=== PATIENT | female | born 1985 | race Caucasian/White ===

== ENCOUNTER 2018-01-26 17:04 | Emergency (ER) | payer MEDICAID ==
--- NOTE | 2018-01-26 17:18 | ED Physician Documentation ---
PD HPI SKIN - Stated complaint Stated Complaint: THROAT TIGHTNESS BEE STING - Chief complaint Chief Complaint: Allergic Rx - History obtained from History obtained from: Patient PD PAST MEDICAL HISTORY - Allergies Allergies/Adverse Reactions: Allergies Allergy/AdvReac Type Severity Reaction Status Date / Time bee venom protein (honey bee) Allergy Anaphylaxis Verified 01/26/18 17:11 iodine Allergy Anaphylaxis Verified 01/26/18 17:11 Results - Vitals Vitals: Vital Signs - 24 hr 01/26/18 17:08 Temperature 36.7 C Heart Rate 83 Respiratory 20 Rate Blood Pressure 121/80 O2 Saturation 100 Oxygen O2 Source Room air
[2018-01-26] MEDS ORDERED: DEXAMETHASONE 10 MG/ML VIAL PO STA (17:19)
--- NOTE | 2018-01-26 18:12 | ED Physician Documentation ---
History of Present Illness - Stated complaint Stated Complaint: THROAT TIGHTNESS BEE STING - Chief complaint Chief Complaint: Allergic Rx - History obtained from History obtained from: Patient - History of Present Illness Timing: Prior to arrival, Today - Additonal information Additional information: 32 year old female was stung by a wasp today in the neck on the left side. She is immediately swelling of the area and she began to feel somewhat short of breath. She is taken for 25 mg Benadryl pills and feels somewhat better now. She has had anaphylaxis once when she was 14 years old from a bee sting. She does not now feel short of breath or have throat constriction. Review of Systems Constitutional: denies: Fever Eyes: denies: Decreased vision Ears: denies: Ear pain Nose: denies: Congestion Throat: denies: Sore throat Cardiac: denies: Chest pain / pressure, Palpitations Respiratory: denies: Dyspnea, Cough GI: denies: Abdominal Pain, Nausea, Vomiting : denies: Dysuria, Frequency PD PAST MEDICAL HISTORY - Allergies Allergies/Adverse Reactions: Allergies Allergy/AdvReac Type Severity Reaction Status Date / Time bee venom protein (honey bee) Allergy Anaphylaxis Verified 01/26/18 17:11 iodine Allergy Anaphylaxis Verified 01/26/18 17:11 PD ED PE NORMAL - Vitals Vital signs reviewed: Yes (Normal) - General General: Alert and oriented X 3, No acute distress, Well developed/nourished - HEENT HEENT: Atraumatic, PERRL, EOMI - Neck Neck: Supple, no meningeal sign, No bony TTP, Other (There is swelling and erythema to the left neck consistent with a local reaction to bee sting. ) - Cardiac Cardiac: RRR, No murmur - Respiratory Respiratory: No respiratory distress, Clear bilaterally - Abdomen Abdomen: Soft, Non tender - Back Back: No CVA TTP, No spinal TTP - Derm Derm: Normal color, Warm and dry, No rash - Extremities Extremities: No deformity, No edema - Neuro Neuro: No motor deficit, No sensory deficit, Normal speech Eye Opening: Spontaneous Motor: Obeys Commands Verbal: Oriented GCS Score: 15 - Psych Psych: Normal mood, Normal affect Results - Vitals Vitals: Vital Signs - 24 hr 01/26/18 17:08 Temperature 36.7 C Heart Rate 83 Respiratory 20 Rate Blood Pressure 121/80 O2 Saturation 100 Oxygen O2 Source Room air PD MEDICAL DECISION MAKING - ED course Complexity details: reviewed results, re-evaluated patient, considered differential, d/w patient, d/w family ED course: 32-year-old female with a bee sting to her left neck is taken some Benadryl and is somewhat improved she is given dexamethasone 10 mg orally here in the emergency department. Departure - Departure Disposition: Home, Self Care Clinical Impression: Bee sting reaction Qualifiers: Encounter type: initial encounter Injury intent: accidental or unintentional Qualified Code(s): T63.441A - Toxic effect of venom of bees, accidental ( unintentional), initial encounter Condition: Stable Instructions: ED Bite Sting Insect Gen Allergic React Follow-Up: GAIL RENEE [Primary Care Provider] -
[2018-01-26 19:35] VITALS: BP 135/87
== END 2018-01-26 18:25 | disposition home or self-care (01) ==
LOC: ED 17:04
DX: T63.441A Toxic effect of venom of bees, accidental (unintentional), initial encounter (principal)
CPT/HCPCS: 99283

== ENCOUNTER 2019-04-18 17:51 | Outpatient (CLI) | payer MEDICAID, OTHER | END 2019-04-18 17:52 | disposition EMS.NT | LOC: EMS 17:51 | PROVIDERS: ATTEND Surgery | DX: R09.89 Other specified symptoms and signs involving the circulatory and respiratory systems (principal) ==

== ENCOUNTER 2019-12-23 13:43 | Outpatient (CLI) | payer OTHER | END 2019-12-23 13:44 | disposition critical access hospital (66) | LOC: EMS 13:43 | PROVIDERS: ATTEND Surgery | DX: O99.89 Other specified diseases and conditions complicating pregnancy, childbirth and the puerperium (principal); R42 Dizziness and giddiness | CPT/HCPCS: A0425; A0427 ==

== ENCOUNTER 2019-12-23 14:03 | Emergency (ER) | payer MEDICAID, OTHER ==
--- NOTE | 2019-12-23 14:23 | ED Physician Documentation ---
History of Present Illness - Stated complaint Stated Complaint: FEMALE - Chief complaint Chief Complaint: Neuro - History obtained from History obtained from: Patient (Maria Alejandra is a 34-year-old female is here today with complaint of dizziness and vertigo. She states that started this morning. States when she woke up this morning she felt like the room was spinning, this has slowly progressed. She denies any recent falls or injuries. Has had no syncopal episodes. She denies any chest pain, palpitations, Nausea, or vomiting. No diarrhea. She is currently 5 weeks . She also states over the past 3 to 5 days she is had some intermittent abdominal cramping. She noticed some pink spotting from the vaginal vault yesterday, this has progressed to mild bright red blood today. She has no hematuria, dysuria, or flank pain. No fevers or chills. She is A1.) Review of Systems Constitutional: denies: Fever, Myalgias, Fatigue Eyes: denies: Loss of vision, Discharge Ears: denies: Loss of hearing, Ear pain, Drainage/discharge, Tinnitus/ringing Nose: denies: Rhinorrhea / runny nose, Congestion Throat: denies: Dental pain / toothache, Sore throat, Swollen tonsils Cardiac: denies: Chest pain / pressure Respiratory: denies: Dyspnea, Cough, Hemoptysis, Wheezing GI: reports: Abdominal Pain. denies: Abdominal Swelling, Nausea, Vomiting, Constipation, Diarrhea, Hematemesis, Bloody / black stool : reports: Vaginal bleeding. denies: Dysuria, Frequency, Hesitancy, Hematuria, Discharge Skin: denies: Rash PD PAST MEDICAL HISTORY - Past Medical History Past Medical History: Yes Respiratory: Asthma Endocrine/Autoimmune: HyPOthyroidism Other Past Medical History: Hypoglycemia - Past Surgical History Past Surgical History: Yes - Allergies Allergies/Adverse Reactions: Allergies Allergy/AdvReac Type Severity Reaction Status Date / Time bee venom protein (honey bee) Allergy Anaphylaxis Verified 12/23/19 14:15 iodine Allergy Anaphylaxis Verified 12/23/19 14:15 Sulfa (Sulfonamide Allergy Anaphylaxis Verified 12/23/19 14:15 Antibiotics) - Social History Does the pt smoke?: No Smoking Status: Never smoker Does the pt drink ETOH?: No Does the pt have substance abuse?: No - Immunizations Immunizations are current?: Yes PD ED PE NORMAL - Vitals Vital signs reviewed: Yes - General General: Alert and oriented X 3, Well developed/nourished, Other (Patient appears uncomfortable however she is nontoxic-appearing. She is not ill- appearing.) - HEENT HEENT: Atraumatic, PERRL, Ears normal, Moist mucous membranes, Other (Tympanic membrane's are pearly aden bilaterally.) - Neck Neck: Supple, no meningeal sign, No JVD - Cardiac Cardiac: RRR, No murmur - Respiratory Respiratory: No respiratory distress - Abdomen Abdomen: Normal bowel sounds, Soft, Non tender, Non distended - Neuro Neuro: Alert and oriented X 3, No motor deficit, Other (Hallpike maneuvers are unremarkable.) Eye Opening: Spontaneous Motor: Obeys Commands Verbal: Oriented GCS Score: 15 - Psych Psych: Normal mood Results - Vitals Vitals: Vital Signs - 24 hr 12/23/19 12/23/19 12/23/19 14:11 15:07 18:01 Temperature 36.6 C 37.3 C Heart Rate 106 H 90 Heart Rate [ 90 Sitting] Heart Rate [ 108 H Standing] Heart Rate [ 85 Supine] Respiratory 16 16 Rate Blood Pressure 129/71 137/66 H Blood Pressure 124/95 H [Sitting] Blood Pressure 152/98 H [Standing] Blood Pressure 112/73 [Supine] O2 Saturation 100 100 Oxygen O2 Source Room air - Labs Labs: Laboratory Tests 12/23/19 12/23/19 12/23/19 14:50 14:50 14:50 WBC 8.4 RBC 4.71 Hgb 11.8 L Hct 36.9 L MCV 78.3 L MCH 25.1 L MCHC 32.0 RDW 15.9 H Plt Count 213 MPV 10.8 Neut # (Auto) 6.2 Lymph # (Auto) 1.5 Harris # (Auto) 0.6 Eos # (Auto) 0.0 Baso # (Auto) 0.0 Absolute Nucleated RBC 0.00 Nucleated RBC % 0.0 Sodium 136 Potassium 3.6 Chloride 105 Carbon Dioxide 22 Anion Gap 9.0 BUN 12 Creatinine 0.9 Estimated GFR (MDRD) 73 L Glucose 109 H Calcium 9.0 Total Bilirubin 0.6 AST 24 ALT 28 Alkaline Phosphatase 57 Total Protein 7.1 Albumin 3.8 Globulin 3.3 Albumin/Globulin Ratio 1.2 HCG, Quant 1060.80 Urine Color Urine Clarity Urine pH Ur Specific Stevenson Urine Protein Urine Glucose (UA) Urine Ketones Urine Occult Blood Urine Nitrite Urine Bilirubin Urine Urobilinogen Ur Leukocyte Esterase Urine RBC Urine WBC Ur Squamous Epith Cells Urine Bacteria Urine Culture Comments Blood Type 12/23/19 12/23/19 14:50 15:32 WBC RBC Hgb Hct MCV MCH MCHC RDW Plt Count MPV Neut # (Auto) Lymph # (Auto) Harris # (Auto) Eos # (Auto) Baso # (Auto) Absolute Nucleated RBC Nucleated RBC % Sodium Potassium Chloride Carbon Dioxide Anion Gap BUN Creatinine Estimated GFR (MDRD) Glucose Calcium Total Bilirubin AST ALT Alkaline Phosphatase Total Protein Albumin Globulin Albumin/Globulin Ratio HCG, Quant Urine Color YELLOW Urine Clarity HAZY Urine pH 5.5 Ur Specific Stevenson 1.015 Urine Protein NEGATIVE Urine Glucose (UA) NEGATIVE Urine Ketones 15 H Urine Occult Blood LARGE H Urine Nitrite NEGATIVE Urine Bilirubin NEGATIVE Urine Urobilinogen 0.2 (NORMAL) Ur Leukocyte Esterase MODERATE H Urine RBC 6-10 H Urine WBC >25 H Ur Squamous Epith Cells MANY Squamous H Urine Bacteria Many H Urine Culture Comments NOT INDICATED Blood Type O POSITIVE PD MEDICAL DECISION MAKING - ED course Complexity details: reviewed results (Discussed patient's laboratory results. Discussed her urinalysis. Discussed possible contamination versus asymptomatic bacteremia. Discussed and offered antimicrobial therapy in light of her . She does not believe she has urine tract function this time and does not want to use antibiotics at this time. I do believe this is a valid decision.), re-evaluated patient, considered differential, d/w patient, other (Patient was given a liter of normal saline here today. She felt better after she received this. Reviewed her orthostatic checks. She had a significant increase in her blood pressure. This was discussed. This may indicate compensatory changes due to mild dehydration. She will increase oral hydration. She may also try Freddy maneuvers at home. She will return to the emergency room as needed for any emergent changes or concerns.) Departure - Departure Disposition: 01 Home, Self Care Clinical Impression: Dehydration Condition: Stable Instructions: ED Dehydration Ch Comments: He had significant changes on your orthostatic checks today. Your blood pressure increased significantly, this may indicate dehydration and compensatory mechanisms. Increase oral hydration to 1 to 2 L daily. He may also try home Ep jt maneuvers for your dizziness. Contact your primary care provider to schedule close follow-up appointment. Please return to emergency room anytime for any emergent changes or concerns.
[2019-12-23 15:02] LABS: BASOPHILS % (AUTO) 0.4 %; EOSINOPHILS % (AUTO) 0.5 %; HGB - HEMOGLOBIN 11.8 g/dL (12.0-16.0); LYMPHOCYTES # (AUTO) 1.5 10^3/uL (1.5-3.5); LYMPHOCYTES % (AUTO) 17.3 %; MEAN CORPUSCULAR HEMOGLOBIN 25.1 pg (27.0-31.0); MEAN CORPUSCULAR VOLUME 78.3 fL (81.0-99.0); MEAN PLATELET VOLUME 10.8 fL (7.9-10.8); MONOCYTES # (AUTO) 0.6 10^3/uL (0.0-1.0); MONOCYTES % (AUTO) 7.4 %; NEUTROPHILS # (AUTO) 6.2 10^3/uL (1.5-6.6); NEUTROPHILS % (AUTO) 73.8 %; PLT - PLATELET COUNT 213 10^3/uL (130-450); RED BLOOD COUNT 4.71 10^6/uL (4.20-5.40); RED CELL DISTRIBUTION WIDTH 15.9 % (12.0-15.0); WHITE BLOOD COUNT 8.4 x10^3/uL (4.8-10.8)
[2019-12-23 15:14] LABS: ALBUMIN 3.8 g/dL (3.2-5.5); ALBUMIN/GLOBULIN RATIO 1.2 (1.0-2.2); BILIRUBIN,TOTAL 0.6 mg/dL (0.2-1.0); CREATININE 0.9 mg/dL (0.4-1.0); TOTAL PROTEIN 7.1 g/dL (6.7-8.2)
[2019-12-23 16:06] LABS: BILIRUBIN,URINE NEGATIVE (NEGATIVE); GLUCOSE, URINE (UA) NEGATIVE (NEGATIVE); KETONES,URINE (UA) 15 mg/dL (NEGATIVE); LEUKOCYTE ESTERASE, URINE MODERATE (NEGATIVE); NITRITE,URINE NEGATIVE (NEGATIVE); OCCULT BLOOD,URINE LARGE (NEGATIVE); PH,URINE 5.5 PH (5.0-7.5); PROTEIN,URINE NEGATIVE (NEGATIVE); UROBILINOGEN,URINE 0.2 (NORMAL) E.U./dL (NORMAL)
[2019-12-23 16:20] LABS: CLARITY,URINE HAZY (CLEAR)
[2019-12-23 16:22] LABS: BACTERIA,URINE Many /HPF (None Seen); SQUAMOUS EPITHELIAL CELL,UR MANY Squamous (<= Few)
--- NOTE | 2019-12-23 17:14 | Ultrasound Report ---
Reason: lower abdominal/pelvic pain Procedure Date: 12/23/2019 Accession Number: [id number] / [id number] Procedure: US - OB First Trimester CPT Code: Final Report FULL RESULT: EXAM: FIRST TRIMESTER OBSTETRIC ULTRASOUND (Less than 11 weeks) EXAM DATE: 12/23/2019 04:16 PM. CLINICAL HISTORY: Lower abdominal/pelvic pain. LMP: Unknown. COMPARISONS: None. TECHNIQUE: Transabdominal and transvaginal ultrasound examination with static image documentation. CLINICAL DATES: EGA 4 weeks 6 days with JUAN JOSÉ 08/25/2020 based on LMP. ASSESSMENT: Gestational Sac: Single intrauterine. Mean gestational sac diameter: 3 mm = 5 weeks 0 days. Embryo: Not visualized. Cardiac activity: Not applicable. Yolk sac: Not visualized. Amniotic fluid: Not applicable. Early placenta: Not applicable. Other: Not applicable. MATERNAL STRUCTURES: Uterus: Anteverted. Multiple uterine fibroids including a intramural fibroid in the anterior aspect of the uterus measuring 1.7 x 2.2 x 2.2 cm. There is an intramural fibroid in the fundal aspect of the uterus measuring 1.2 x 1.3 x 1.6 cm. There is an intramural fibroid in the posterior aspect of the uterus measuring 1.8 x 1.7 x 1.9 cm. Cervix: Closed. Right Ovary/Adnexa: The ovary measures 3.2 x 2.0 x 1.6 cm, volume 5.4 cc. Unremarkable. Left Ovary/Adnexa: The ovary measures 3.3 x 3.5 x 2.3 cm, volume 13.5 cc. There is a corpus luteal cyst within the left ovary measuring up to 2.2 cm. Free Fluid: None. Other: None. IMPRESSION: 1. of unknown location. There is a tiny cystic structure within the endometrium which may represent a gestational sac. No internal structures identified. If this is a gestational sac, this would correlate with a of 5 weeks 0 days. Consider serial beta hCG level testing and if clinically indicated repeat pelvic ultrasound in 7-10 days to establish viability and dating. 2. Corpus luteal cyst within the left ovary measuring 2.2 cm. No free fluid or masses identified in the visualized pelvis.. [facility]
[2019-12-23] MEDS ORDERED: SODIUM CHLORIDE 0.9% 1,000 ML IV ONE (17:26)
[2019-12-23 20:12] VITALS: BP 134/81
== END 2019-12-23 20:15 | disposition home or self-care (01) ==
LOC: EDUNIT# → ED 14:03
DX: O99.89 Other specified diseases and conditions complicating pregnancy, childbirth and the puerperium (principal); E86.0 Dehydration; R03.0 Elevated blood-pressure reading, without diagnosis of hypertension; Z3A.01 Less than 8 weeks gestation of pregnancy
CPT/HCPCS: 36415; 76801; 76817; 80053; 81001; 84702; 85025; 86900; 86901; 87086; 96360; 99284

== ENCOUNTER 2020-02-06 10:59 | Outpatient (CLI) | payer OTHER | END 2020-02-06 11:00 | disposition short-term general hospital (02) | LOC: EMS 10:59 | PROVIDERS: ATTEND Surgery | DX: S49.92XA Unspecified injury of left shoulder and upper arm, initial encounter (principal); R07.81 Pleurodynia; R41.82 Altered mental status, unspecified; V80.010A Animal-rider injured by fall from or being thrown from horse in noncollision accident, initial encounter; Y93.52 Activity, horseback riding | CPT/HCPCS: A0425; A0429 ==